=== PATIENT | male | born 1950 | race Caucasian/White ===

== ENCOUNTER 2017-04-01 02:27 | Emergency (ER) | payer OTHER, BC ==
[~2017-04-01] VITALS: Ht 177.8 cm; Wt 94.3 kg
[~2017-04-01 02:27] MED LIST: AMLODIPINE BESY10 MG PO; ASPIRIN EC81 M1 PO; AZOR 10-20 MG1 EACH PO; CALCIUM 600 MG1 EAC3; CINNAMON BARK1 GM; EFFIENT10 MG PO; GLUCOPHAGE XR500 MG PO; GLUCOPHAGE500 MG PO; HYDROCHLOROTHIA25 M1 PO; KLOR-CON 10 ER10 MEQ PO; LEXAPRO 10 MG T10 M2; LIPITOR40 MG PO; LOPRESSOR25 PO; METOPROLOL SUCC25 M1 PO; MULTIVITAMINS1 EAC7; NICOTINE TRANSD21 M1 TD; PANTOPRAZOLE SO40 MG PO; SIMVASTATIN40 MG PO; VALSARTAN-HCTZ1 EAC3 PO
[2017-04-01] MEDS ORDERED: COREG6.25 MG PO (02:47)
[2017-04-01] MEDS ORDERED: PREDNISONE50 MG PO (05:13)
== END 2017-04-01 05:32 | disposition home or self-care (01) ==
LOC: ER 02:27
DX: L50.9 Urticaria, unspecified (principal); T78.40XA Allergy, unspecified, initial encounter; I25.2 Old myocardial infarction; I10 Essential (primary) hypertension; E11.9 Type 2 diabetes mellitus without complications; E78.00 Pure hypercholesterolemia, unspecified; K21.9 Gastro-esophageal reflux disease without esophagitis; F10.99 Alcohol use, unspecified with unspecified alcohol-induced disorder; Z95.5 Presence of coronary angioplasty implant and graft; X58.XXXA Exposure to other specified factors, initial encounter